=== PATIENT | female | born 1975 | race Caucasian/White ===

== ENCOUNTER 2018-08-26 12:28 | Emergency (ER) | payer MEDICAID ==
[~2018-08-26] VITALS: Ht 152.4 cm; Wt 42.6 kg
[~2018-08-26 12:28] MED LIST: ALB0.5UD IH; COMIN IH; CYCL-1 PO; HYDR-4383 PO; INDO50CA14 PO; LEVA15HF4 IH; METH-234 PO
[2018-08-26] MEDS ORDERED: ondansetron/PF 4mg/2ml inj IV ONE (13:00)
[2018-08-26] MEDS ORDERED: morphine 4 MG/ML inj SYRINge IV ONE ×2 (13:00→15:40)
[2018-08-26 13:14] LABS: BASOPHILS % (AUTO) 0.3 % (0-1); EOSINOPHILS # (AUTO) 0.1 X10'3 (0-0.9); EOSINOPHILS % (AUTO) 1.1 % (0-6); HEMOGLOBIN 14.1 g/dl (12.0-16.0); LYMPHOCYTES # (AUTO) 2.3 X10'3 (1.1-4.8); LYMPHOCYTES % (AUTO) 28.6 % (21-51); MEAN CORPUSCULAR HEMOGLOBIN 33.9 PG (27.0-31.0); MEAN CORPUSCULAR HGB CONC 34.4 % (33.0-36.5); MEAN CORPUSCULAR VOLUME 98.6 FL (78-98); MEAN PLATELET VOLUME 6.6 FL (7.4-10.4); MONOCYTES # (AUTO) 0.6 X10'3 (0-0.9); NEUTROPHILS # (AUTO) 5.1 X10'3 (1.8-7.7); PLATELET COUNT 389 X10'3 (140-440); RED BLOOD COUNT 4.16 X10'6 (4.20-5.60); RED CELL DISTRIBUTION WIDTH 13.6 % (11.5-14.5); WHITE BLOOD COUNT 8.1 X10'3 (4.5-11.0)
[2018-08-26 13:29] LABS: ALANINE AMINOTRANSFERASE 28 U/L (12-78); ALBUMIN 4.4 G/DL (3.4-5.0); ALBUMIN/GLOBULIN RATIO 1.4 (1.1-1.5); ALKALINE PHOSPHATASE 47 IU/L (46-116); AMYLASE 53 U/L (25-115); ANION GAP 8 (8-16); ASPARTATE AMINO TRANSFERASE 18 U/L (10-37); BILIRUBIN,TOTAL 0.3 MG/DL (0.1-1.0); BLOOD UREA NITROGEN 10 MG/DL (7-18); BUN/CREATININE RATIO 10.1 (6.6-38.0); CALCIUM 9.2 MG/DL (8.5-10.1); CHLORIDE 101 MMOL/L (99-107); CREATININE 0.99 MG/DL (0.40-0.90); GLUCOSE 95 MG/DL (70-104); LIPASE 105 U/L (73-393); SODIUM 134 MMOL/L (135-145); TOTAL CARBON DIOXIDE 24.8 MMOL/L (24-32); TOTAL PROTEIN 7.5 G/DL (6.4-8.2); eGFR 61 ML/MIN
[2018-08-26 13:31] LABS: INR 1.1 INR; PROTHROMBIN TIME 11.2 SECONDS (9.0-12.0)
[2018-08-26] MEDS ORDERED: iohexol 300mg/ml 100ml inj. ONE (13:45)
--- NOTE | 2018-08-26 14:47 | NUR ---
Informed Dr. Ruiz patient is still in pain. Verbal 15mg ketoralac and 1L of NS.
[2018-08-26] MEDS ORDERED: ketorolac trometh. 30mg/ml inj. IV ONE (14:50)
[2018-08-26] MEDS ORDERED: normal saline 1000ml 1,000 ML IV ONE (14:50)
[2018-08-26 16:30] LABS: CLARITY,URINE CLEAR (Clear); COLOR,URINE YELLOW (Yellow); GLUCOSE, URINE NEGATIVE (Neg); KETONES,URINE NEGATIVE (Neg); LEUKOCYTE ESTERASE ,URINE NEGATIVE (Neg); NITRITES, URINE NEGATIVE (Neg); OCCULT BLOOD,URINE NEGATIVE (Neg); PROTEIN,URINE NEGATIVE (Neg); UROBILINOGEN,URINE 0.2 E.U/dL (0.2-1.0)
[2018-08-26 16:31] LABS: UA COLLECTION TYPE CLN CATCH MIDSTREAM
[2018-08-26 16:32] LABS: URINE HCG NEGATIVE (NEG)
[2018-08-26] MEDS ORDERED: TRAM50TA2 PO (16:38)
[2018-08-26] MEDS ORDERED: ONDA4TAB12 PO (16:38)
[2018-08-26 17:15] VITALS: BP 107/63
== END 2018-08-26 17:21 | disposition home or self-care (01) ==
LOC: ER 12:32
DX: K52.9 Noninfective gastroenteritis and colitis, unspecified (principal); J45.909 Unspecified asthma, uncomplicated; E03.9 Hypothyroidism, unspecified; G89.29 Other chronic pain; F12.90 Cannabis use, unspecified, uncomplicated; Z98.51 Tubal ligation status; Z88.6 Allergy status to analgesic agent; Z88.5 Allergy status to narcotic agent; Z88.8 Allergy status to other drugs, medicaments and biological substances; Z79.899 Other long term (current) drug therapy
CPT/HCPCS: 36415; 74177; 80053; 81003; 81025; 82150; 83690; 85025; 85610; 96361; 96374; 96375; 96376; 99284; J1885; J2270; J2405; J7030; Q9967

== ENCOUNTER 2019-03-11 14:04 | Emergency (ER) | payer MEDICAID ==
[~2019-03-11] VITALS: Ht 152.4 cm; Wt 41.4 kg
[~2019-03-11 14:04] MED LIST changes: -INDO50CA14 PO; +INDO50CA96 PO; +ONDA4TAB12 PO
[2019-03-11] MEDS ORDERED: diphenhydrAMINE 50 mg/ml inj IV ONE (14:50)
[2019-03-11] MEDS ORDERED: normal saline 1000ML IV soln IVB ONE ×2 (14:50)
[2019-03-11] MEDS ORDERED: metoclopramide 5 mg/ml inj IV ONE (14:50)
[2019-03-11] MEDS ORDERED: LORazepam 2 mg/ml vial IV ONE (14:50)
[2019-03-11] MEDS ORDERED: ketorolac trometh. 30mg/ml inj. IV ONE (14:55)
[2019-03-11 15:30] LABS: BASOPHILS % (AUTO) 0.4 % (0-1); EOSINOPHILS % (AUTO) 0.6 % (0-6); HEMATOCRIT 40.5 % (35.0-45.0); HEMOGLOBIN 13.9 g/dl (12.0-16.0); LYMPHOCYTES % (AUTO) 28.3 % (21-51); MEAN CORPUSCULAR HEMOGLOBIN 33.6 PG (27.0-31.0); MEAN CORPUSCULAR HGB CONC 34.3 g/dL (33.0-36.5); MEAN PLATELET VOLUME 6.8 FL (7.4-10.4); MONOCYTES # (AUTO) 0.5 X10'3 (0-0.9); MONOCYTES % (AUTO) 7.2 % (2-12); NEUTROPHILS # (AUTO) 4.6 X10'3 (1.8-7.7); NEUTROPHILS % (AUTO) 63.5 % (42-75); PLATELET COUNT 379 X10'3 (140-440); RED BLOOD COUNT 4.13 X10'6 (4.20-5.60); RED CELL DISTRIBUTION WIDTH 13.6 % (11.5-14.5); WHITE BLOOD COUNT 7.2 X10'3 (4.5-11.0)
[2019-03-11 15:31] LABS: ALANINE AMINOTRANSFERASE 27 U/L (12-78); ALBUMIN 3.7 G/DL (3.4-5.0); ALBUMIN/GLOBULIN RATIO 1.2 (1.1-1.5); ALKALINE PHOSPHATASE 52 IU/L (46-116); ANION GAP 9 (8-16); ASPARTATE AMINO TRANSFERASE 13 U/L (10-37); BILIRUBIN,TOTAL 0.3 MG/DL (0.1-1.0); BLOOD UREA NITROGEN 8 MG/DL (7-18); BUN/CREATININE RATIO 9.4 (6.6-38.0); CALCIUM 8.8 MG/DL (8.5-10.1); CHLORIDE 103 MMOL/L (99-107); CREATININE 0.85 MG/DL (0.40-0.90); GLUCOSE 98 MG/DL (70-104); LIPASE 128 U/L (73-393); POTASSIUM 3.7 MMOL/L (3.5-5.1); SODIUM 140 MMOL/L (135-145); TOTAL CARBON DIOXIDE 28.3 MMOL/L (24-32); TOTAL PROTEIN 6.8 G/DL (6.4-8.2); eGFR 72 ML/MIN
[2019-03-11] MEDS ORDERED: ONDA4TAB12 PO (16:10)
[2019-03-11 16:47] VITALS: BP 120/7
== END 2019-03-11 17:11 | disposition home or self-care (01) ==
LOC: ER 14:05
DX: R51 Headache (principal); M54.2 Cervicalgia; R11.2 Nausea with vomiting, unspecified; R10.13 Epigastric pain; J45.909 Unspecified asthma, uncomplicated; E03.9 Hypothyroidism, unspecified; G89.29 Other chronic pain; F12.90 Cannabis use, unspecified, uncomplicated; F17.210 Nicotine dependence, cigarettes, uncomplicated; Z98.51 Tubal ligation status; Z88.6 Allergy status to analgesic agent; Z88.5 Allergy status to narcotic agent; Z91.018 Allergy to other foods; Z88.8 Allergy status to other drugs, medicaments and biological substances
CPT/HCPCS: 36415; 80053; 83690; 85025; 96374; 96375; 99283; J1200; J1885; J2060; J2765; J7030

== ENCOUNTER 2019-03-14 11:05 | Emergency (ER) | payer MEDICAID ==
[~2019-03-14] VITALS: Ht 152.4 cm; Wt 41.0 kg
[2019-03-14] MEDS ORDERED: HYDROcodone/acetaminophen 5mg/325mg tablet PO ONE (12:20)
[2019-03-14 12:51] VITALS: BP 130/75
== END 2019-03-14 12:53 | disposition home or self-care (01) ==
LOC: ER 11:05
DX: S60.221A Contusion of right hand, initial encounter (principal); J45.909 Unspecified asthma, uncomplicated; E03.9 Hypothyroidism, unspecified; G89.29 Other chronic pain; F12.90 Cannabis use, unspecified, uncomplicated; Z98.51 Tubal ligation status; Z88.6 Allergy status to analgesic agent; Z88.5 Allergy status to narcotic agent; Z91.018 Allergy to other foods; Z79.899 Other long term (current) drug therapy; W22.01XA Walked into wall, initial encounter; Y93.89 Activity, other specified; Y92.89 Other specified places as the place of occurrence of the external cause; Y99.9 Unspecified external cause status
CPT/HCPCS: 29125; 73130; 99283

== ENCOUNTER 2019-03-19 09:47 | Emergency (ER) | payer MEDICAID ==
[~2019-03-19] VITALS: Ht 152.4 cm; Wt 41.4 kg
[2019-03-19 09:50] VITALS: BP 137/83
--- NOTE | 2019-03-19 09:59 | NUR ---
Pt here for splint check; states splint is hurting. PMS intact distally. Appt with ortho clinic scheduled for 03/26.
== END 2019-03-19 10:58 | disposition home or self-care (01) ==
LOC: ER 09:48
DX: S60.221D Contusion of right hand, subsequent encounter (principal); E03.9 Hypothyroidism, unspecified; G89.29 Other chronic pain; J45.909 Unspecified asthma, uncomplicated; F12.90 Cannabis use, unspecified, uncomplicated; Z88.8 Allergy status to other drugs, medicaments and biological substances; Z79.899 Other long term (current) drug therapy; Z88.6 Allergy status to analgesic agent; Z87.440 Personal history of urinary (tract) infections; Z98.51 Tubal ligation status; Z87.01 Personal history of pneumonia (recurrent); Z87.448 Personal history of other diseases of urinary system; Z91.018 Allergy to other foods; W22.01XD Walked into wall, subsequent encounter
CPT/HCPCS: 73130; 99283

== ENCOUNTER 2019-08-04 19:29 | Emergency (ER) | payer MEDICAID ==
[~2019-08-04] VITALS: Ht 152.4 cm; Wt 41.0 kg
[2019-08-04 20:22] LABS: BASOPHILS # (AUTO) 0.1 X10'3 (0-0.2); BASOPHILS % (AUTO) 0.6 % (0-1); EOSINOPHILS # (AUTO) 0.1 X10'3 (0-0.9); EOSINOPHILS % (AUTO) 0.7 % (0-6); HEMATOCRIT 47.5 % (35.0-45.0); HEMOGLOBIN 16.7 g/dl (12.0-16.0); LYMPHOCYTES # (AUTO) 1.2 X10'3 (1.1-4.8); LYMPHOCYTES % (AUTO) 13.4 % (21-51); MEAN CORPUSCULAR HEMOGLOBIN 32.9 PG (27.0-31.0); MEAN CORPUSCULAR HGB CONC 35.1 g/dL (33.0-36.5); MEAN CORPUSCULAR VOLUME 93.8 FL (78-98); MEAN PLATELET VOLUME 6.5 FL (7.4-10.4); MONOCYTES # (AUTO) 0.5 X10'3 (0-0.9); NEUTROPHILS # (AUTO) 7.4 X10'3 (1.8-7.7); NEUTROPHILS % (AUTO) 80.3 % (42-75); PLATELET COUNT 403 X10'3 (140-440); RED BLOOD COUNT 5.06 X10'6 (4.20-5.60); RED CELL DISTRIBUTION WIDTH 13.5 % (11.5-14.5); WHITE BLOOD COUNT 9.3 X10'3 (4.5-11.0)
[2019-08-04 20:23] LABS: CLARITY,URINE SLIGHTLY CLOUDY (Clear); COLOR,URINE YELLOW (Yellow); GLUCOSE, URINE NEGATIVE (Neg); KETONES,URINE NEGATIVE (Neg); LEUKOCYTE ESTERASE ,URINE NEGATIVE (Neg); NITRITES, URINE NEGATIVE (Neg); OCCULT BLOOD,URINE NEGATIVE (Neg); PH,URINE 5.5 (4.8-8.0); PROTEIN,URINE TRACE mg/dl (Neg); UROBILINOGEN,URINE 0.2 E.U/dL (0.2-1.0)
[2019-08-04 20:25] LABS: UA COLLECTION TYPE CLN CATCH MIDSTREAM
[2019-08-04 20:28] LABS: URINE HCG NEGATIVE (NEG)
[2019-08-04 20:35] LABS: BACTERIA,URINE NONE SEEN /HPF (Neg); HYALINE CASTS 0-3 /LPF (NEGATIVE); MUCUS STRANDS MANY /LPF (Neg); RBC,URINE NONE SEEN /HPF (0-2); SQUAMOUS EPITHELIAL CELL,UR MANY /LPF (FEW); WBC,URINE 0-4 /HPF (0-4)
[2019-08-04 20:37] LABS: ALANINE AMINOTRANSFERASE 24 U/L (12-78); ALBUMIN 4.8 G/DL (3.4-5.0); ALBUMIN/GLOBULIN RATIO 1.5 (1.1-1.5); ALKALINE PHOSPHATASE 69 IU/L (46-116); ANION GAP 10 (8-16); ASPARTATE AMINO TRANSFERASE 17 U/L (10-37); BILIRUBIN,TOTAL 0.6 MG/DL (0.1-1.0); BLOOD UREA NITROGEN 11 MG/DL (7-18); BUN/CREATININE RATIO 11.7 (6.6-38.0); CALCIUM 9.5 MG/DL (8.5-10.1); CHLORIDE 103 MMOL/L (99-107); CREATININE 0.94 MG/DL (0.40-0.90); GLUCOSE 90 MG/DL (70-104); LIPASE 96 U/L (73-393); POTASSIUM 3.9 MMOL/L (3.5-5.1); SODIUM 140 MMOL/L (135-145); TOTAL CARBON DIOXIDE 26.8 MMOL/L (24-32); TOTAL PROTEIN 8.1 G/DL (6.4-8.2); eGFR 64 ML/MIN
[2019-08-04] MEDS ORDERED: LIDOcaine Viscous 15ml cup MM ONE (20:50)
[2019-08-04] MEDS ORDERED: ondansetron/PF 4mg/2ml inj IV ONE (20:50)
[2019-08-04] MEDS ORDERED: famotidine/PF 10 mg/ml inj IV ONE (20:50)
[2019-08-04] MEDS ORDERED: mag hydrox/Alum hydrox/simeth 30ml oral suspension PO ONE (20:50)
[2019-08-04] MEDS ORDERED: normal saline 1000ml 1,000 ML IV ONE (20:50)
[2019-08-04] MEDS ORDERED: fentaNYL/PF 50MCG/1 ML 2ML syringe IV ONE (20:50)
[2019-08-04] MEDS ORDERED: pantoprazole 40 MG vial IV ONE (20:50)
[2019-08-04] MEDS ORDERED: HYDROcodone/acetaminophen 5mg/325mg tablet PO ONE (22:10)
[2019-08-04] MEDS ORDERED: BISA-155 PO (22:11)
[2019-08-04] MEDS ORDERED: ONDA8TAB6 PO (22:11)
[2019-08-04] MEDS ORDERED: PANT-47 PO (22:11)
[2019-08-04] MEDS ORDERED: HYDR-3965 PO (22:11)
[2019-08-04 22:30] VITALS: BP 109/44
== END 2019-08-04 22:33 | disposition home or self-care (01) ==
LOC: ER 19:30
DX: R10.84 Generalized abdominal pain (principal); R10.33 Periumbilical pain; E03.9 Hypothyroidism, unspecified; J45.909 Unspecified asthma, uncomplicated; G89.29 Other chronic pain; F12.90 Cannabis use, unspecified, uncomplicated; Z98.51 Tubal ligation status; Z88.6 Allergy status to analgesic agent; Z88.5 Allergy status to narcotic agent; Z91.018 Allergy to other foods
CPT/HCPCS: 36415; 80053; 81001; 81025; 83690; 85025; 96374; 96375; 99284; C9113; J2405; J3010; J3490; J7030

== ENCOUNTER 2019-09-27 14:54 | Emergency (ER) | payer MEDICAID ==
[~2019-09-27] VITALS: Ht 152.4 cm; Wt 46.8 kg
[~2019-09-27 14:54] MED LIST changes: +BISA-155 PO; +ONDA8TAB6 PO; +PANT-47 PO
[2019-09-27 15:12] VITALS: BP 125/77
[2019-09-27] MEDS ORDERED: acetaminophen 325mg tablet PO ONE (15:55)
[2019-09-27] MEDS ORDERED: HYDROcodone/acetaminophen 10/325mg tab PO ONE (16:15)
[2019-09-27] MEDS ORDERED: CYCL-1 PO (17:07)
== END 2019-09-27 17:46 | disposition home or self-care (01) ==
LOC: ER 14:54
DX: M54.2 Cervicalgia (principal); M54.5 Low back pain; R20.0 Anesthesia of skin; R20.2 Paresthesia of skin; J45.909 Unspecified asthma, uncomplicated; E03.9 Hypothyroidism, unspecified; G89.29 Other chronic pain; F12.90 Cannabis use, unspecified, uncomplicated; Z98.51 Tubal ligation status; Z88.6 Allergy status to analgesic agent; Z88.5 Allergy status to narcotic agent; Z91.018 Allergy to other foods; Z88.8 Allergy status to other drugs, medicaments and biological substances; Z79.899 Other long term (current) drug therapy
CPT/HCPCS: 72125; 99284

== ENCOUNTER 2019-12-22 12:00 | Emergency (ER) | payer MEDICAID, OTHER ==
[~2019-12-22] VITALS: Ht 152.4 cm; Wt 40.9 kg
[2019-12-22] MEDS ORDERED: indomethacin 25mg capsule PO STA (12:19)
[2019-12-22] MEDS ORDERED: INDO50CA96 PO (13:56)
[2019-12-22 14:19] VITALS: BP 107/77
== END 2019-12-22 14:29 | disposition home or self-care (01) ==
LOC: ER 12:01
DX: R07.81 Pleurodynia (principal); J45.909 Unspecified asthma, uncomplicated; E03.9 Hypothyroidism, unspecified; G89.29 Other chronic pain; R06.02 Shortness of breath; F12.90 Cannabis use, unspecified, uncomplicated; Z98.51 Tubal ligation status; Z88.6 Allergy status to analgesic agent; Z88.5 Allergy status to narcotic agent; Z88.8 Allergy status to other drugs, medicaments and biological substances; Z79.899 Other long term (current) drug therapy
CPT/HCPCS: 71046; 93005; 99283

== ENCOUNTER 2020-04-10 12:30 | Emergency (ER) | payer MEDICAID ==
[~2020-04-10] VITALS: Ht 152.4 cm; Wt 42.3 kg
[2020-04-10 13:09] VITALS: BP 117/75
[2020-04-10] MEDS ORDERED: HYDROcodone/acetaminophen 5mg/325mg tablet PO ONE (14:15)
[2020-04-10] MEDS ORDERED: LIDOcaine 5% patch TP ONE (14:15)
[2020-04-10] MEDS ORDERED: ondansetron 4mg rapidly disintigrating tab PO ONE (14:15)
[2020-04-10] MEDS ORDERED: HYDR-3965 PO (15:55)
[2020-04-10] MEDS ORDERED: LIDO700A32 TOP (15:55)
== END 2020-04-10 16:13 | disposition home or self-care (01) ==
LOC: ER 12:31
DX: M53.3 Sacrococcygeal disorders, not elsewhere classified (principal); M54.5 Low back pain; G89.29 Other chronic pain; J45.909 Unspecified asthma, uncomplicated; E03.9 Hypothyroidism, unspecified; F12.90 Cannabis use, unspecified, uncomplicated; Z98.51 Tubal ligation status; Z88.6 Allergy status to analgesic agent; Z88.5 Allergy status to narcotic agent; Z91.018 Allergy to other foods; Z79.899 Other long term (current) drug therapy
CPT/HCPCS: 72220; 99284

== ENCOUNTER 2021-01-17 11:58 | Emergency (ER) | payer MEDICAID ==
[~2021-01-17] VITALS: Ht 152.4 cm; Wt 38.6 kg
[~2021-01-17 11:58] MED LIST changes: +LIDO700A32 TOP
[2021-01-17] MEDS ORDERED: normal saline 1000ml 1,000 ML IV ONE (13:30)
[2021-01-17] MEDS ORDERED: metoclopramide 10mg tablet PO ONE (13:30)
[2021-01-17] MEDS ORDERED: ketorolac tromethamine 15mg/ml inj. IV ONE (13:30)
[2021-01-17] MEDS ORDERED: diphenhydrAMINE 50 mg/ml inj IV ONE (13:30)
[2021-01-17] MEDS ORDERED: metoclopramide 5 mg/ml inj IV ONE (14:15)
[2021-01-17 15:30] VITALS: BP 105/76
== END 2021-01-17 15:32 | disposition home or self-care (01) ==
LOC: ER 11:59
DX: R51.9 Headache, unspecified (principal); J45.909 Unspecified asthma, uncomplicated; E03.9 Hypothyroidism, unspecified; G89.29 Other chronic pain; F12.90 Cannabis use, unspecified, uncomplicated; Z87.01 Personal history of pneumonia (recurrent); Z87.440 Personal history of urinary (tract) infections; Z98.51 Tubal ligation status; Z79.82 Long term (current) use of aspirin; Z88.5 Allergy status to narcotic agent; Z88.6 Allergy status to analgesic agent; Z88.8 Allergy status to other drugs, medicaments and biological substances; Z91.018 Allergy to other foods; Z79.899 Other long term (current) drug therapy
CPT/HCPCS: 96361; 96374; 96375; 99284; J1200; J1885; J2765; J7030

== ENCOUNTER 2021-02-05 17:29 | Emergency (ER) | payer MEDICAID ==
[~2021-02-05] VITALS: Ht 152.4 cm; Wt 38.6 kg
[2021-02-05 18:12] VITALS: BP 133/84
== END 2021-02-05 23:07 | disposition left against medical advice (07) ==
LOC: ER 17:31
DX: G43.909 Migraine, unspecified, not intractable, without status migrainosus (principal); Z53.21 Procedure and treatment not carried out due to patient leaving prior to being seen by health care provider

== ENCOUNTER 2021-03-23 11:20 | Inpatient (IN) | payer MEDICAID ==
[~2021-03-23] VITALS: Ht 162.6 cm; Wt 42.9 kg
[2021-03-23 12:47] LABS: BASOPHILS % (AUTO) 0.8 % (0-1); EOSINOPHILS % (AUTO) 0.7 % (0-6); HEMATOCRIT 41.4 % (35.0-45.0); LYMPHOCYTES # (AUTO) 1.7 X10'3 (1.1-4.8); LYMPHOCYTES % (AUTO) 27.2 % (21-51); MEAN CORPUSCULAR HEMOGLOBIN 32.4 PG (27.0-31.0); MEAN CORPUSCULAR HGB CONC 33.7 g/dL (33.0-36.5); MEAN PLATELET VOLUME 6.5 FL (7.4-10.4); MONOCYTES # (AUTO) 0.6 X10'3 (0-0.9); MONOCYTES % (AUTO) 9.1 % (2-12); NEUTROPHILS % (AUTO) 62.2 % (42-75); PLATELET COUNT 384 X10'3 (140-440); RED BLOOD COUNT 4.31 X10'6 (4.20-5.60); RED CELL DISTRIBUTION WIDTH 13.7 % (11.5-14.5); WHITE BLOOD COUNT 6.4 X10'3 (4.5-11.0)
[2021-03-23 12:57] LABS: ALANINE AMINOTRANSFERASE 18 U/L (12-78); ALBUMIN 4.2 G/DL (3.4-5.0); ALBUMIN/GLOBULIN RATIO 1.4 (1.1-1.5); ALKALINE PHOSPHATASE 48 IU/L (46-116); ANION GAP 8 (8-16); ASPARTATE AMINO TRANSFERASE 13 U/L (10-37); BILIRUBIN,TOTAL 0.3 MG/DL (0.1-1.0); BLOOD UREA NITROGEN 13 MG/DL (7-18); BUN/CREATININE RATIO 14.8 (6.6-38.0); CALCIUM 8.8 MG/DL (8.5-10.1); CHLORIDE 104 MMOL/L (99-107); CREATININE 0.88 MG/DL (0.40-0.90); GLUCOSE 111 MG/DL (70-104); POTASSIUM 4.5 MMOL/L (3.5-5.1); SODIUM 139 MMOL/L (135-145); TOTAL CARBON DIOXIDE 27.2 MMOL/L (24-32); TOTAL PROTEIN 7.2 G/DL (6.4-8.2); eGFR 69 ML/MIN
[2021-03-23 13:03] LABS: LIPASE 112 U/L (73-393)
[2021-03-23 13:25] LABS: PARTIAL THROMBOPLASTIN TIME 29 SECONDS (22-32)
[2021-03-23] MEDS ORDERED: temazepam 15mg capsule PO PRN (21:00)
[2021-03-23] MEDS ORDERED: aspirin 325mg tablet PO ONE (21:50)
--- NOTE | 2021-03-23 22:03 | NUR ---
ASPIRIN ORDERED, PT HAS HX OF ANAPHALYXIS. NICO BELL UPDATED. ORDER CANCELLED.
[2021-03-23] MEDS ORDERED: morphine 4 MG/ML inj SYRINge IV ONE (22:05)
[2021-03-23] MEDS ORDERED: ondansetron/PF 4mg/2ml inj IV ONE (22:05)
--- NOTE | 2021-03-23 22:42 | NUR ---
patient received in bed 18.
--- NOTE | 2021-03-23 22:44 | NUR ---
patient up to the bathroom.
--- NOTE | 2021-03-23 23:18 | NUR ---
DR GONZALES IN ROOM WITH PT
[2021-03-23] MEDS ORDERED: magnesium 2GM in 50ml NS 50 ML IV PRN (23:50)
[2021-03-23] MEDS ORDERED: magnesium hydroxide 30ml (MOM) UD suspension PO PRN (23:50)
[2021-03-23] MEDS ORDERED: magnesium 4gm in 100ml NS 100 ML IV PRN (23:50)
[2021-03-23] MEDS ORDERED: acetaminophen 325mg tablet PO PRN (23:50)
[2021-03-23] MEDS ORDERED: magnesium Cl slow-release 64mg tablet PO PRN (23:50)
[2021-03-23] MEDS ORDERED: aminophylline 250mg/10ml inj. IV PRN (23:50)
[2021-03-23] MEDS ORDERED: metoprolol tartrate 1mg/ml inj IV PRN (23:50)
[2021-03-23] MEDS ORDERED: potassium Cl 40MEQ/1/2NS 520ml 520 ML IV PRN ×2 (23:50)
[2021-03-23] MEDS ORDERED: regadenoson 0.4mg/5ml syringe IV PRN (23:50)
[2021-03-23] MEDS ORDERED: nitroGLYCERIN 0.4mg SUBLingual tab SL PRN (23:50)
[2021-03-23] MEDS ORDERED: mag hydrox/Alum hydrox/simeth 30ml oral suspension PO PRN (23:50)
[2021-03-23] MEDS ORDERED: potassium Cl 20 mEq SR tablet PO PRN ×2 (23:50)
[2021-03-24] VITALS (15 sets, daily range): BP systolic 112–146; BP diastolic 54–88
[2021-03-24] MEDS: normal saline 1000ml 1,000 ML IV SCH ×2 (00:41→09:50)
[2021-03-24 02:01] LABS: BASOPHILS # (AUTO) 0.1 X10'3 (0-0.2); EOSINOPHILS # (AUTO) 0.2 X10'3 (0-0.9); EOSINOPHILS % (AUTO) 2.8 % (0-6); HEMOGLOBIN 15.5 g/dl (12.0-16.0); LYMPHOCYTES # (AUTO) 3.7 X10'3 (1.1-4.8); MEAN CORPUSCULAR HEMOGLOBIN 33.1 PG (27.0-31.0); MEAN CORPUSCULAR HGB CONC 35.1 g/dL (33.0-36.5); MEAN CORPUSCULAR VOLUME 94.3 FL (78-98); MEAN PLATELET VOLUME 6.4 FL (7.4-10.4); MONOCYTES # (AUTO) 0.6 X10'3 (0-0.9); MONOCYTES % (AUTO) 6.7 % (2-12); NEUTROPHILS # (AUTO) 3.9 X10'3 (1.8-7.7); NEUTROPHILS % (AUTO) 45.5 % (42-75); PLATELET COUNT 401 X10'3 (140-440); RED BLOOD COUNT 4.67 X10'6 (4.20-5.60); RED CELL DISTRIBUTION WIDTH 13.5 % (11.5-14.5); WHITE BLOOD COUNT 8.5 X10'3 (4.5-11.0)
[2021-03-24 02:22] LABS: ALANINE AMINOTRANSFERASE 18 U/L (12-78); ALBUMIN/GLOBULIN RATIO 1.4 (1.1-1.5); ALKALINE PHOSPHATASE 56 IU/L (46-116); ANION GAP 12 (8-16); ASPARTATE AMINO TRANSFERASE 15 U/L (10-37); BILIRUBIN,TOTAL 0.7 MG/DL (0.1-1.0); BLOOD UREA NITROGEN 13 MG/DL (7-18); BUN/CREATININE RATIO 13.7 (6.6-38.0); CALCIUM 8.9 MG/DL (8.5-10.1); CHLORIDE 101 MMOL/L (99-107); CHOL/HDL RATIO 3.6 (0.00-4.99); CHOLESTEROL 217 MG/DL (0-200); CREATININE 0.95 MG/DL (0.40-0.90); GLUCOSE 88 MG/DL (70-104); HDL CHOLESTEROL 61 MG/DL (35-60); LDL CHOLESTEROL 123 MG/DL (50-100); MAGNESIUM 2.3 MG/DL (1.5-2.4); POTASSIUM 3.6 MMOL/L (3.5-5.1); SODIUM 139 MMOL/L (135-145); TOTAL CARBON DIOXIDE 26.5 MMOL/L (24-32); TOTAL PROTEIN 8.5 G/DL (6.4-8.2); TRIGLYCERIDES 114 MG/DL (20-135); eGFR 63 ML/MIN
[2021-03-24] MEDS: morphine 4 MG/ML inj SYRINge IV PRN ×3 (02:57→10:58)
--- NOTE | 2021-03-24 02:57 | NUR ---
RIGHT CHEST PAIN 8 OUT OF 10. STATES RADIATS TO RIGHT BACK. VSS. GIVEN PRN MORPHINE. AWAITING IPA.
[2021-03-24] MEDS ORDERED: ALB0.5UD IH (04:13)
[2021-03-24] MEDS ORDERED: CYCL-394 PO (04:13)
[2021-03-24] MEDS ORDERED: IPRA4AER IH (04:13)
[2021-03-24] MEDS ORDERED: LIDO700A32 TOP (04:13)
[2021-03-24] MEDS ORDERED: RIZA10TA27 PO (04:13)
[2021-03-24] MEDS ORDERED: INDSR75C PO (04:13)
[2021-03-24] MEDS ORDERED: METH-797 PO (04:13)
[2021-03-24] MEDS ORDERED: ONDA4TAB12 PO (04:13)
[2021-03-24] MEDS ORDERED: BUTA-259 PO (04:25)
[2021-03-24] MEDS: heparin, porcine 5000 units/ml vial SQ SCH ×2 (08:00→20:27)
[2021-03-24] MEDS ORDERED: K and/or MAG REPLACEMENT MC SCH ×2 (08:00→20:00)
--- NOTE | 2021-03-24 08:06 | NUR ---
ED CALLS REPORT TO PCU, SOHA MORALES WAS TOLD THAT SO MORALES WAS UNAVAILABLE TO TAKE REPORT AND WILL CALL ED BACK.
[2021-03-24] MEDS ORDERED: SUMA50TA17 PO (08:13)
[2021-03-24] MEDS ORDERED: METH-798 PO (08:13)
[2021-03-24] MEDS ORDERED: AMIT10TA6 PO (08:13)
--- NOTE | 2021-03-24 08:29 | NUR ---
Called ER to obtain report, unable to reach Regulo, will await his call for report.
[2021-03-24] MEDS: ondansetron/PF 4mg/2ml inj IV PRN ×2 (08:54→20:23)
--- NOTE | 2021-03-24 09:16 | NUR ---
Patient in room ED 14. I have received report from ANDREW Rajput and had the opportunity to ask questions. Patient currently at [facility] for Lexiscan. Awaiting arrival on this unit to assume patient care.
[2021-03-24] MEDS ORDERED: potassium Cl 40MEQ/1/2NS 520ml 520 ML IV PRN ×2 (13:15)
[2021-03-24] MEDS ORDERED: normal saline 1000ml 1,000 ML IV SCH (13:15)
[2021-03-24] MEDS ORDERED: potassium Cl 20 mEq SR tablet PO PRN ×2 (13:15)
[2021-03-24] MEDS ORDERED: LIDOcaine 1% (10mg/ml)w/preservative injection 20ml MDV ONE (13:25)
[2021-03-24] MEDS ORDERED: midazolam 1 mg/ML 2ml injection ONE (13:25)
[2021-03-24] MEDS ORDERED: fentaNYL/PF 50MCG/1 ML 2ML syringe ONE (13:25)
[2021-03-24] MEDS ORDERED: iohexol 350 MG/ML 50ML vial IV ONE ×2 (13:25→13:32)
[2021-03-24] MEDS ORDERED: iohexol 350MG/ML 100ml bottle IV ONE (13:26)
[2021-03-24] MEDS ORDERED: morphine 2 MG/ML inj. syringe ONE (14:29)
[2021-03-24] MEDS ORDERED: RIZA10TA28 PO (15:23)
[2021-03-24] MEDS ORDERED: HYDROcodone/acetaminophen 10/325mg tab PO PRN (15:40)
[2021-03-24] MEDS ORDERED: proCHLORperazine 10 MG/2 ml inj IV PRN (15:40)
[2021-03-24] MEDS ORDERED: OXAZEpam 15mg capsule PO PRN (15:40)
[2021-03-24] MEDS ORDERED: HYDROcodone/acetaminophen 5mg/325mg tablet PO PRN (15:40)
[2021-03-24] MEDS ORDERED: ondansetron/PF 4mg/2ml inj IV PRN (15:40)
[2021-03-24] MEDS ORDERED: nitroGLYCERIN 0.4mg SUBLingual tab SL PRN (15:40)
--- NOTE | 2021-03-24 18:55 | NUR ---
Problems reprioritized. Patient report given, questions answered & plan of care reviewed with ANDREW Byers.
--- NOTE | 2021-03-24 19:27 | NUR ---
Patient in room PCU 3024. I have received report from Becca MORALES and had the opportunity to ask questions and assume patient care.
== END 2021-03-24 21:15 | disposition home or self-care (01) | DRG 192 ==
LOC: ER 11:21 → ED HOLD 23:55 → PCU 3S 03-24 10:05
PROVIDERS: ADMIT Internal Medicine; ATTEND Family Medicine
PROC: 4A023N7 Measurement of Cardiac Sampling and Pressure, Left Heart, Percutaneous Approach (ICD-10-PCS; principal; 2021-03-24)
PROC: B2111ZZ Fluoroscopy of Multiple Coronary Arteries using Low Osmolar Contrast (ICD-10-PCS; 2021-03-24)
PROC: B2151ZZ Fluoroscopy of Left Heart using Low Osmolar Contrast (ICD-10-PCS; 2021-03-24)
PROC: 4A02XM4 Measurement of Cardiac Total Activity, External Approach (ICD-10-PCS; 2021-03-24)
PROC: 3E073KZ Introduction of Other Diagnostic Substance into Coronary Artery, Percutaneous Approach (ICD-10-PCS; 2021-03-24)
DX: R07.89 Other chest pain (principal); E03.9 Hypothyroidism, unspecified; F12.90 Cannabis use, unspecified, uncomplicated; F17.210 Nicotine dependence, cigarettes, uncomplicated; G43.909 Migraine, unspecified, not intractable, without status migrainosus; M54.9 Dorsalgia, unspecified; G89.4 Chronic pain syndrome; M48.00 Spinal stenosis, site unspecified; N28.9 Disorder of kidney and ureter, unspecified; J44.9 Chronic obstructive pulmonary disease, unspecified; Z88.6 Allergy status to analgesic agent; Z98.51 Tubal ligation status; Z88.8 Allergy status to other drugs, medicaments and biological substances; Z88.5 Allergy status to narcotic agent; Z87.01 Personal history of pneumonia (recurrent); Z71.6 Tobacco abuse counseling
CPT/HCPCS: 36415; 71045; 78452; 80053; 80061; 83605; 83690; 83735; 83880; 84132; 84484; 85025; 85610; 85730; 87040; 87081; 93005; 93017; 93306; 93458; 96374; 96375; 99152; 99153; 99285; A4620; A6258; A9500; C1769; G0378; J1644; J2001; J2250; J2270; J2405; J2785; J3010; J7030; Q9967

== ENCOUNTER 2021-06-10 16:03 | Emergency (ER) | payer MEDICAID ==
[~2021-06-10] VITALS: Ht 152.4 cm; Wt 44.4 kg
[~2021-06-10 16:03] MED LIST changes: -BISA-155 PO; -COMIN IH; -CYCL-1 PO; -HYDR-4383 PO; -INDO50CA96 PO; -LEVA15HF4 IH; -METH-234 PO; +METH-798 PO; -ONDA8TAB6 PO; -PANT-47 PO; +RIZA10TA28 PO; +SUMA50TA17 PO
[2021-06-10 18:07] LABS: CLARITY,URINE CLEAR (Clear); COLOR,URINE YELLOW (Yellow); GLUCOSE, URINE NEGATIVE (Neg); KETONES,URINE NEGATIVE (Neg); LEUKOCYTE ESTERASE ,URINE NEGATIVE (Neg); NITRITES, URINE NEGATIVE (Neg); OCCULT BLOOD,URINE TRACE-INTACT (Neg); PROTEIN,URINE NEGATIVE (Neg); UA COLLECTION TYPE CLN CATCH MIDSTREAM; UROBILINOGEN,URINE 0.2 E.U/dL (0.2-1.0)
[2021-06-10 18:10] LABS: BASOPHILS # (AUTO) 0.1 X10'3 (0-0.2); BASOPHILS % (AUTO) 0.9 % (0-1); EOSINOPHILS # (AUTO) 0.1 X10'3 (0-0.9); EOSINOPHILS % (AUTO) 1.1 % (0-6); HEMATOCRIT 41.4 % (35.0-45.0); HEMOGLOBIN 14.5 g/dl (12.0-16.0); LYMPHOCYTES # (AUTO) 2.5 X10'3 (1.1-4.8); LYMPHOCYTES % (AUTO) 35.9 % (21-51); MEAN CORPUSCULAR HEMOGLOBIN 32.9 PG (27.0-31.0); MEAN CORPUSCULAR HGB CONC 34.9 g/dL (33.0-36.5); MEAN CORPUSCULAR VOLUME 94.2 FL (78-98); MEAN PLATELET VOLUME 6.4 FL (7.4-10.4); MONOCYTES # (AUTO) 0.4 X10'3 (0-0.9); MONOCYTES % (AUTO) 5.3 % (2-12); NEUTROPHILS # (AUTO) 3.9 X10'3 (1.8-7.7); NEUTROPHILS % (AUTO) 56.8 % (42-75); PLATELET COUNT 433 X10'3 (140-440); RED BLOOD COUNT 4.39 X10'6 (4.20-5.60); RED CELL DISTRIBUTION WIDTH 13.7 % (11.5-14.5); WHITE BLOOD COUNT 6.9 X10'3 (4.5-11.0)
[2021-06-10 18:12] LABS: BACTERIA,URINE NONE SEEN /HPF (Neg); RBC,URINE 0-2 /HPF (0-2); SQUAMOUS EPITHELIAL CELL,UR FEW /LPF (FEW); WBC,URINE NONE SEEN /HPF (0-4)
[2021-06-10 18:23] LABS: ALANINE AMINOTRANSFERASE 23 U/L (12-78); ALBUMIN 4.4 G/DL (3.4-5.0); ALBUMIN/GLOBULIN RATIO 1.2 (1.1-1.5); ALKALINE PHOSPHATASE 57 IU/L (46-116); ANION GAP 9 (8-16); ASPARTATE AMINO TRANSFERASE 16 U/L (10-37); BILIRUBIN,TOTAL 0.5 MG/DL (0.1-1.0); BLOOD UREA NITROGEN 10 MG/DL (7-18); BUN/CREATININE RATIO 10.3 (6.6-38.0); CALCIUM 8.9 MG/DL (8.5-10.1); CHLORIDE 104 MMOL/L (99-107); CREATININE 0.97 MG/DL (0.40-0.90); GLUCOSE 91 MG/DL (70-104); LIPASE 73 U/L (73-393); POTASSIUM 4.1 MMOL/L (3.5-5.1); SODIUM 141 MMOL/L (135-145); TOTAL CARBON DIOXIDE 28.3 MMOL/L (24-32); TOTAL PROTEIN 8.1 G/DL (6.4-8.2); eGFR 62 ML/MIN
[2021-06-10] MEDS ORDERED: diazepam inj 5 MG/ML inj. IV ONE (20:50)
[2021-06-10 22:56] VITALS: BP 125/81
== END 2021-06-10 22:59 | disposition home or self-care (01) ==
LOC: ER 16:03
DX: M54.42 Lumbago with sciatica, left side (principal); M54.41 Lumbago with sciatica, right side; R10.84 Generalized abdominal pain; R53.1 Weakness; J45.909 Unspecified asthma, uncomplicated; E03.9 Hypothyroidism, unspecified; G89.29 Other chronic pain; F12.90 Cannabis use, unspecified, uncomplicated; Z87.01 Personal history of pneumonia (recurrent); Z87.440 Personal history of urinary (tract) infections; Z98.51 Tubal ligation status; Z88.5 Allergy status to narcotic agent; Z88.6 Allergy status to analgesic agent; Z88.8 Allergy status to other drugs, medicaments and biological substances; Z91.018 Allergy to other foods; Z79.899 Other long term (current) drug therapy
CPT/HCPCS: 36415; 71045; 80053; 81001; 83690; 84145; 85025; 96374; 99284; J3360

== ENCOUNTER 2021-11-16 09:19 | Emergency (ER) | payer MEDICAID ==
[~2021-11-16] VITALS: Ht 152.4 cm; Wt 40.9 kg
[2021-11-16 09:51] LABS: BASOPHILS # (AUTO) 0.1 X10'3 (0-0.2); BASOPHILS % (AUTO) 0.9 % (0-1); EOSINOPHILS % (AUTO) 0.7 % (0-6); HEMATOCRIT 41.2 % (35.0-45.0); HEMOGLOBIN 14.5 g/dl (12.0-16.0); LYMPHOCYTES # (AUTO) 1.5 X10'3 (1.1-4.8); LYMPHOCYTES % (AUTO) 26.6 % (21-51); MEAN CORPUSCULAR HEMOGLOBIN 33.8 PG (27.0-31.0); MEAN CORPUSCULAR HGB CONC 35.3 g/dL (33.0-36.5); MEAN CORPUSCULAR VOLUME 95.9 FL (78-98); MEAN PLATELET VOLUME 6.5 FL (7.4-10.4); MONOCYTES # (AUTO) 0.4 X10'3 (0-0.9); MONOCYTES % (AUTO) 6.9 % (2-12); NEUTROPHILS # (AUTO) 3.5 X10'3 (1.8-7.7); NEUTROPHILS % (AUTO) 64.9 % (42-75); PLATELET COUNT 362 X10'3 (140-440); RED BLOOD COUNT 4.29 X10'6 (4.20-5.60); RED CELL DISTRIBUTION WIDTH 13.8 % (11.5-14.5); WHITE BLOOD COUNT 5.5 X10'3 (4.5-11.0)
[2021-11-16 10:25] LABS: ALANINE AMINOTRANSFERASE 19 U/L (12-78); ALBUMIN 4.5 G/DL (3.4-5.0); ALBUMIN/GLOBULIN RATIO 1.3 (1.1-1.5); ALKALINE PHOSPHATASE 60 IU/L (46-116); ASPARTATE AMINO TRANSFERASE 15 U/L (10-37); BILIRUBIN,TOTAL 0.4 MG/DL (0.1-1.0); BLOOD UREA NITROGEN 10 MG/DL (7-18); BUN/CREATININE RATIO 10.8 (6.6-38.0); CALCIUM 9.1 MG/DL (8.5-10.1); CREATININE 0.93 MG/DL (0.40-0.90); GLUCOSE 100 MG/DL (70-104); POTASSIUM 3.7 MMOL/L (3.5-5.1); SODIUM 139 MMOL/L (135-145); TOTAL CARBON DIOXIDE 28.1 MMOL/L (24-32); TOTAL PROTEIN 7.9 G/DL (6.4-8.2); eGFR 65 ML/MIN
[2021-11-16 10:32] LABS: ANION GAP 8 (8-16)
[2021-11-16 12:35] LABS: CHLORIDE 103 MMOL/L (99-107)
[2021-11-16 12:42] VITALS: BP 103/70
== END 2021-11-16 12:44 | disposition home or self-care (01) ==
LOC: ER 09:19
DX: R07.89 Other chest pain (principal); G43.909 Migraine, unspecified, not intractable, without status migrainosus; J45.909 Unspecified asthma, uncomplicated; E03.9 Hypothyroidism, unspecified; G89.29 Other chronic pain; F12.90 Cannabis use, unspecified, uncomplicated; Z87.440 Personal history of urinary (tract) infections; Z87.01 Personal history of pneumonia (recurrent); Z87.81 Personal history of (healed) traumatic fracture; Z98.51 Tubal ligation status; Z79.82 Long term (current) use of aspirin; Z88.8 Allergy status to other drugs, medicaments and biological substances; Z91.018 Allergy to other foods; Z79.899 Other long term (current) drug therapy; Z88.6 Allergy status to analgesic agent
CPT/HCPCS: 36415; 71045; 80053; 83880; 84484; 85025; 93005; 99285

== ENCOUNTER 2022-01-11 18:10 | Emergency (ER) | payer MEDICAID ==
[~2022-01-11] VITALS: Ht 152.4 cm; Wt 43.7 kg
[2022-01-11 19:19] LABS: BASOPHILS % (AUTO) 0.6 % (0-1); EOSINOPHILS # (AUTO) 0.1 X10'3 (0-0.9); EOSINOPHILS % (AUTO) 0.9 % (0-6); HEMATOCRIT 41.2 % (35.0-45.0); HEMOGLOBIN 13.8 g/dl (12.0-16.0); LYMPHOCYTES # (AUTO) 1.9 X10'3 (1.1-4.8); LYMPHOCYTES % (AUTO) 32.7 % (21-51); MEAN CORPUSCULAR HEMOGLOBIN 32.5 PG (27.0-31.0); MEAN CORPUSCULAR HGB CONC 33.5 g/dL (33.0-36.5); MEAN CORPUSCULAR VOLUME 97.1 FL (78-98); MEAN PLATELET VOLUME 6.1 FL (7.4-10.4); MONOCYTES # (AUTO) 0.5 X10'3 (0-0.9); MONOCYTES % (AUTO) 8.9 % (2-12); NEUTROPHILS # (AUTO) 3.3 X10'3 (1.8-7.7); NEUTROPHILS % (AUTO) 56.9 % (42-75); PLATELET COUNT 385 X10'3 (140-440); RED BLOOD COUNT 4.24 X10'6 (4.20-5.60); RED CELL DISTRIBUTION WIDTH 13.4 % (11.5-14.5); WHITE BLOOD COUNT 5.8 X10'3 (4.5-11.0)
[2022-01-11 19:32] LABS: ALANINE AMINOTRANSFERASE 7 U/L (12-78); ALBUMIN 4.1 G/DL (3.4-5.0); ALBUMIN/GLOBULIN RATIO 1.1 (1.1-1.5); ALKALINE PHOSPHATASE 52 IU/L (46-116); ANION GAP 7 (8-16); ASPARTATE AMINO TRANSFERASE 22 U/L (10-37); BILIRUBIN,TOTAL 0.5 MG/DL (0.1-1.0); BLOOD UREA NITROGEN 8 MG/DL (7-18); BUN/CREATININE RATIO 8.6 (6.6-38.0); CALCIUM 8.8 MG/DL (8.5-10.1); CHLORIDE 100 MMOL/L (99-107); CREATININE 0.93 MG/DL (0.40-0.90); GLUCOSE 99 MG/DL (70-104); POTASSIUM 3.9 MMOL/L (3.5-5.1); SODIUM 134 MMOL/L (135-145); TOTAL CARBON DIOXIDE 26.8 MMOL/L (24-32); TOTAL PROTEIN 7.7 G/DL (6.4-8.2); eGFR 64 ML/MIN
[2022-01-11] MEDS ORDERED: azithromycin 250mg tablet PO ONE (23:45)
[2022-01-11] MEDS ORDERED: AZIT-83 PO (23:46)
[2022-01-12 00:21] VITALS: BP 115/81
== END 2022-01-12 00:24 | disposition home or self-care (01) ==
LOC: ER 18:11
DX: R07.81 Pleurodynia (principal); R06.02 Shortness of breath; G43.909 Migraine, unspecified, not intractable, without status migrainosus; J44.9 Chronic obstructive pulmonary disease, unspecified; E03.9 Hypothyroidism, unspecified; G89.29 Other chronic pain; F17.200 Nicotine dependence, unspecified, uncomplicated; F12.90 Cannabis use, unspecified, uncomplicated; Z87.81 Personal history of (healed) traumatic fracture; Z87.01 Personal history of pneumonia (recurrent); Z87.440 Personal history of urinary (tract) infections; Z98.51 Tubal ligation status; Z79.2 Long term (current) use of antibiotics; Z79.899 Other long term (current) drug therapy; Z91.018 Allergy to other foods; Z88.8 Allergy status to other drugs, medicaments and biological substances; Z88.6 Allergy status to analgesic agent
CPT/HCPCS: 71045; 80053; 83880; 84484; 85025; 93005; 99285

== ENCOUNTER 2023-11-02 03:51 | Emergency (ER) | payer MEDICAID ==
[~2023-11-02] VITALS: Ht 152.4 cm; Wt 40.9 kg
[2023-11-02 04:21] VITALS: BP 152/99; PULSE 85; RESP 18; TEMP 98.2; O2SAT 99
[2023-11-02 04:41] LABS: BASOPHILS % (AUTO) 0.8 % (0-1); EOSINOPHILS # (AUTO) 0.1 X10'3 (0-0.9); EOSINOPHILS % (AUTO) 1.2 % (0-6); HEMATOCRIT 45.9 % (35.0-45.0); HEMOGLOBIN 15.9 g/dl (12.0-16.0); LYMPHOCYTES # (AUTO) 1.9 X10'3 (1.1-4.8); LYMPHOCYTES % (AUTO) 41.6 % (21-51); MEAN CORPUSCULAR HGB CONC 34.6 g/dL (33.0-36.5); MEAN PLATELET VOLUME 6.5 FL (7.4-10.4); MONOCYTES # (AUTO) 0.3 X10'3 (0-0.9); MONOCYTES % (AUTO) 7.6 % (2-12); NEUTROPHILS # (AUTO) 2.2 X10'3 (1.8-7.7); NEUTROPHILS % (AUTO) 48.8 % (42-75); PLATELET COUNT 328 X10'3 (140-440); RED BLOOD COUNT 4.54 X10'6 (4.20-5.60); RED CELL DISTRIBUTION WIDTH 13.1 % (11.5-14.5); WHITE BLOOD COUNT 4.6 X10'3 (4.5-11.0)
[2023-11-02 04:58] LABS: ANION GAP 12 (8-16); BLOOD UREA NITROGEN 10 MG/DL (7-18); CALCIUM 8.9 MG/DL (8.5-10.1); CHLORIDE 104 MMOL/L (99-107); CREATININE 0.83 MG/DL (0.40-0.90); GLUCOSE 88 MG/DL (70-104); POTASSIUM 3.3 MMOL/L (3.5-5.1); SODIUM 141 MMOL/L (135-145); TOTAL CARBON DIOXIDE 24.7 MMOL/L (24-32); eCRCL 53 ML/MIN; eGFR 73 ML/MIN
== END 2023-11-02 05:47 | disposition home or self-care (01) ==
LOC: ER 03:52
DX: R07.89 Other chest pain (principal); G43.909 Migraine, unspecified, not intractable, without status migrainosus; J44.9 Chronic obstructive pulmonary disease, unspecified; E03.9 Hypothyroidism, unspecified; G89.29 Other chronic pain; M54.9 Dorsalgia, unspecified; F12.90 Cannabis use, unspecified, uncomplicated; Z87.81 Personal history of (healed) traumatic fracture; Z88.8 Allergy status to other drugs, medicaments and biological substances; Z88.6 Allergy status to analgesic agent; Z91.018 Allergy to other foods; Z79.899 Other long term (current) drug therapy; Z79.2 Long term (current) use of antibiotics
CPT/HCPCS: 36415; 71045; 80048; 84484; 85025; 93005; 99285

== ENCOUNTER 2025-01-23 10:45 | Emergency (ER) | payer MEDICAID ==
[~2025-01-23] VITALS: Ht 160 cm; Wt 50.0 kg
[~2025-01-23 10:45] MED LIST changes: +LIDO-52 TOP; -LIDO700A32 TOP; +ONDA-243 PO; -ONDA4TAB12 PO
[2025-01-23 10:48] VITALS: TEMP 98
[2025-01-23 11:13] LABS: BASOPHILS % (AUTO) 0.8 % (0-1); EOSINOPHILS % (AUTO) 0.4 % (0-6); HEMATOCRIT 46.8 % (35.0-45.0); HEMOGLOBIN 16.1 g/dl (12.0-16.0); LYMPHOCYTES # (AUTO) 1.6 X10'3 (1.1-4.8); LYMPHOCYTES % (AUTO) 24.5 % (21-51); MEAN CORPUSCULAR HGB CONC 34.4 g/dL (33.0-36.5); MEAN CORPUSCULAR VOLUME 98.8 FL (78-98); MEAN PLATELET VOLUME 6.1 FL (7.4-10.4); MONOCYTES # (AUTO) 0.5 X10'3 (0-0.9); MONOCYTES % (AUTO) 8.2 % (2-12); NEUTROPHILS # (AUTO) 4.3 X10'3 (1.8-7.7); NEUTROPHILS % (AUTO) 66.1 % (42-75); PLATELET COUNT 395 X10'3 (140-440); RED BLOOD COUNT 4.74 X10'6 (4.20-5.60); RED CELL DISTRIBUTION WIDTH 13.9 % (11.5-14.5); WHITE BLOOD COUNT 6.5 X10'3 (4.5-11.0)
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
[2025-01-23 11:33] LABS: ALANINE AMINOTRANSFERASE 27 U/L (12-78); ALBUMIN 3.9 G/DL (3.4-5.0); ALKALINE PHOSPHATASE 106 IU/L (46-116); ANION GAP 9 (8-16); ASPARTATE AMINO TRANSFERASE 23 U/L (10-37); BILIRUBIN,TOTAL 0.3 MG/DL (0.1-1.0); BLOOD UREA NITROGEN 10 MG/DL (7-18); BUN/CREATININE RATIO 12.5 (10.0-20.0); CALCIUM 9.7 MG/DL (8.5-10.1); CHLORIDE 100 MMOL/L (99-107); GLUCOSE 61 MG/DL (70-104); LIPASE 25 U/L (16-77); POTASSIUM 3.4 MMOL/L (3.5-5.1); SODIUM 136 MMOL/L (135-145); TOTAL CARBON DIOXIDE 27.5 MMOL/L (24-32); TOTAL PROTEIN 7.9 G/DL (6.4-8.2); eCRCL 66 ML/MIN; eGFR 76 ML/MIN
[2025-01-23] MEDS: oxyCODONE IR 5mg (immed. release) tablet PO ONE (12:08)
[2025-01-23] MEDS ORDERED: OXYC15TA PO (12:14)
[2025-01-23 12:22] LABS: BILIRUBIN,URINE SMALL (Neg); CLARITY,URINE SLIGHTLY CLOUDY (Clear); COLOR,URINE YELLOW (Yellow); GLUCOSE, URINE NEGATIVE (Neg); KETONES,URINE TRACE mg/dl (Neg); LEUKOCYTE ESTERASE ,URINE NEGATIVE (Neg); NITRITES, URINE NEGATIVE (Neg); OCCULT BLOOD,URINE NEGATIVE (Neg); PH,URINE 5.5 (4.8-8.0); PROTEIN,URINE TRACE mg/dl (Neg); UROBILINOGEN,URINE 0.2 E.U/dL (0.2-1.0)
[2025-01-23 12:23] LABS: UA COLLECTION TYPE CLN CATCH MIDSTREAM
[2025-01-23 12:25] LABS: URINE HCG NEGATIVE (NEG)
[2025-01-23 12:31] LABS: SQUAMOUS EPITHELIAL CELL,UR MANY /LPF (FEW)
[2025-01-23 12:32] LABS: BACTERIA,URINE FEW /HPF (Neg); TRANSITIONAL EPI CELLS,URINE FEW /HPF; WBC,URINE 0-4 /HPF (0-4)
[2025-01-23 12:43] VITALS: BP 133/89; PULSE 67; RESP 16; O2SAT 97
== END 2025-01-23 12:51 | disposition home or self-care (01) ==
LOC: ER 10:46
DX: F11.90 Opioid use, unspecified, uncomplicated (principal); J44.9 Chronic obstructive pulmonary disease, unspecified; E03.9 Hypothyroidism, unspecified; G43.909 Migraine, unspecified, not intractable, without status migrainosus; F12.90 Cannabis use, unspecified, uncomplicated; Z76.0 Encounter for issue of repeat prescription; Z88.5 Allergy status to narcotic agent; Z88.6 Allergy status to analgesic agent; Z98.51 Tubal ligation status; Z88.8 Allergy status to other drugs, medicaments and biological substances; Z79.899 Other long term (current) drug therapy; Z91.018 Allergy to other foods
CPT/HCPCS: 36415; 80053; 81001; 81025; 83690; 85025; 99283